=== PATIENT | male | born 2000 | race African-American/Black ===

== ENCOUNTER 2021-12-16 11:29 | Emergency (ER) | payer OTHER ==
[2021-12-16 11:34] VITALS: BP 140/74; PULSE 76; TEMP 98.3; BMI 34.9
[2021-12-16] MEDS ORDERED: KETOROLAC TROMETHAMINE 30 MG/1 ML VIAL IM ONE (13:04)
[2021-12-16] MEDS ORDERED: KETOROLAC TROMETHAMINE 30 MG/1 ML VIAL ONE (13:09)
== END 2021-12-16 13:22 | disposition home or self-care (01) ==
LOC: JERFT 11:29
PROC: 3E023GC Introduction of Other Therapeutic Substance into Muscle, Percutaneous Approach (ICD-10-PCS; principal; 2021-12-16)
DX: S82.831A Other fracture of upper and lower end of right fibula, initial encounter for closed fracture (principal); X50.9XXA Other and unspecified overexertion or strenuous movements or postures, initial encounter
CPT/HCPCS: 73590-TC-RT-FY; 73610-TC-RT-FY; 73630-TC-RT-FY; 99284-25